=== PATIENT | male | born 2000 | race Hispanic/Latino ===

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

== ENCOUNTER 2022-02-25 17:16 | Emergency (ER) | payer OTHER ==
[2022-02-25] MEDS ORDERED: Dexamethasone 4 MG TAB ONE (17:34)
[2022-02-25] MEDS ORDERED: Ibuprofen 200 MG TAB ONE (17:34)
[2022-02-25] MEDS ORDERED: Metoclopramide HCl 10 MG TAB ONE (17:36)
== END 2022-02-25 18:58 | disposition home or self-care (01) ==
LOC: ERS 17:16
DX: R51.9 Headache, unspecified (principal); R11.10 Vomiting, unspecified
CPT/HCPCS: 70450; J8540

== ENCOUNTER 2022-03-12 14:22 | Emergency (ER) | payer OTHER ==
[~2022-03-12 14:22] MED LIST: Iopamidol-370 76% 500 ML 1 ML ONE
[2022-03-12 14:57] LABS: #Eosinphils 0.2 thou/uL (0.0-0.7); #Lymphocytes 1.6 thou/uL (1.20-3.40); #Monocytes 0.9 thou/uL (0.11-0.59); #Neutrophils 9.2 thou/uL (1.40-6.50); %Eosinophils 1.3 % (0.0-10.0); %Lymphocytes 13.9 % (28.0-48.0); %Monocytes 7.2 % (0.0-4.0); %Neutrophils 77.6 % (31.0-61.0); Hemoglobin 15.5 g/dL (14.0-18.0); Mean Corpuscular HGB CONC 34.6 g/dL (32.0-36.0); Mean Corpuscular Hemoglobin 31.3 pg (25.0-35.0); Mean Corpuscular Volume 90.3 fl (78.0-98.0); Mean Platelet Volume 8.3 fL (7.4-10.4); Platelet Count 221 10x3/uL (130-400); RBC Distribution Width 11.5 % (11.5-14.5); Red Blood Cell (RBC) Count 4.97 mill/uL (4.00-5.20); White Blood Cell (WBC) Count 11.9 10x3/uL (4.8-10.8)
[2022-03-12 15:12] LABS: SARS-CoV-2 NAA Rapid Test Not Detected (NotDetected)
[2022-03-12 15:18] LABS: ALT (SGPT) 46 U/L (8-55); AST (SGOT) 22 U/L (10-45); Albumin 4.5 g/dL (3.5-5.0); Alkaline Phosphatase 52 U/L (50-130); Anion Gap 13 mmol/L (10-20); BUN (Urea Nitrogen) 12 mg/dL (8.4-21.0); Bilirubin, Total 1.6 mg/dL (0.2-1.2); Calc. Creatinine Clearance 0 mL/min (70-130); Calcium 9.3 mg/dL (7.8-10.44); Carbon Dioxide 23 mmol/L (22-29); Chloride 104 mmol/L (98-107); Estimated GFR 131; Globulin 2.8 g/dL (2.4-3.5); Glucose 102 mg/dL (70-105); Lipase 13 U/L (8-78); Protein, Total 7.3 g/dL (6.0-8.3); Sodium 136 mmol/L (136-145)
[2022-03-12] MEDS ORDERED: Acetaminophen 500 MG TAB ONE (15:26)
[2022-03-12] MEDS ORDERED: Ondansetron PF 4 MG/2 ML Vial ONE (16:37)
== END 2022-03-12 18:40 | disposition home or self-care (01) ==
LOC: ERS 14:22
DX: A08.4 Viral intestinal infection, unspecified (principal); Z20.822 Contact with and (suspected) exposure to COVID-19
CPT/HCPCS: 36415; 74177; 80053; 83690; 85025; 96374; J2405